=== PATIENT | male | born 1940 | race Caucasian/White ===

== ENCOUNTER → 2018-03-28 09:39 | Outpatient (CLI) | payer MEDICARE, SELFPAY ==
--- NOTE | 2018-03-28 10:06 | DI.CT.S_ITS ---
PROCEDURE: CT HEAD/BRAIN WO CON INDICATIONS: Memory impairment TECHNIQUE: Noncontrast 4.5 mm thick angled axial sections acquired from the foramen magnum to the vertex, with coronal and sagittal reformats. For radiation dose reduction, the following was used: automated exposure control, adjustment of mA and/or kV according to patient size. COMPARISON: None. FINDINGS: Image quality: Excellent. CSF spaces: Basal cisterns are patent. No extra-axial fluid collections. The ventricles are symmetric in size and shape. Brain: No intracranial bleeds or masses. There is cerebral volume loss for age, with resultant ventricular and sulcal prominence. There are periventricular and deep white matter chronic small vessel ischemic changes. There is intracranial internal carotid artery atherosclerosis. Skull and face: Calvarium and visualized facial bones appear intact, without suspicious lesions. Sinuses: Visualized sinuses and mastoids are clear. IMPRESSION: Study within normal limits for age, with age-appropriate brain parenchymal volume loss and chronic small vessel ischemic changes. Dictated by: Arnulfo Abad M.D. on 03/28/2018 at 9:14 Approved by: Arnulfo Abad M.D. on 03/28/2018 at 9:15
== END ==
PROVIDERS: PCP Internal Medicine; Visit Provider Internal Medicine
DX: F04 Amnestic disorder due to known physiological condition (principal)
CPT/HCPCS: 70450

== ENCOUNTER → 2019-04-15 14:46 | Outpatient (CLI) | payer OTHER, SELFPAY ==
--- NOTE | 2019-04-15 | DI.ECHO.S_ITS ---
[place] +---------+ [facility] +---------+ : : [address] : : : : [id number] : : : : Phone: [phone]+ Echocardiogram Report + + :Name: JAYLENE RILEY Study Date: 04/15/2019 Height: 65 in : :[facility] Exam Location: [facility] Weight: 156 lb: : Gender: Male BSA: 1.8 m2 : :: 1940 Age: 79 yrs : :Reason For Study: Aortic valve regurgitation : :Ordering Physician: Ashley : :Nelida Nichols Performed By: Deisi San : + + Interpretation Summary 1) Normal left ventricular thickness, size, and systolic function (EF about 55%). 2) Normal right ventricular size and function. 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 5) Mild to moderate tricuspid regurgitation present. 6) Mild to moderate mitral regurgitation present. 7) Compared to the Echo done 02/28/2018, no significant change. Procedure: A two-dimensional transthoracic echocardiogram with color flow and Doppler was performed. The study quality was technically adequate. Comparison is made with the echocardiogram of 02/28/2018. The heart rate ranged between 48-57 bpm during the study. Left Ventricle: The left ventricle is normal in size. There is normal left ventricular wall thickness. Left ventricular ejection fraction is estimated to be 55 +/- 5%. Left ventricular systolic function is normal. Septal motion is consistent with conduction abnormality. Right Ventricle: The right ventricle is normal in size and function. 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 There is no Doppler evidence for an interatrial shunt. Mitral Valve: The mitral valve leaflets are mildly calcified. There is mild mitral annular calcification. There is mild to moderate mitral regurgitation. Aortic Valve: The aortic valve is trileaflet. The aortic valve opens well. There is moderate aortic regurgitation. Tricuspid Valve: The tricuspid valve leaflets are thin and pliable. There is mild to moderate tricuspid regurgitation. Pulmonic Valve: The pulmonic valve is not well visualized. There is trace pulmonic regurgitation. Great Vessels: The aortic root is normal size. The ascending aorta is mildly enlarged. The pulmonary is not well visualized. The IVC is of normal diameter and collapses less than 50% with a sniff. This suggests a right atrial pressure of 8 mm Hg. Pericardium/ Pleura There is no pericardial effusion. There is no pleural effusion. MMode/2D Measurements & Calculations LVIDd: 5.1 cm LVOT diam: 1.9 cm LVIDs: 3.3 cm Ao root diam: 3.4 cm FS: 35.7 % asc Aorta Diam: 4.1 cm EPSS: 0.41 cm Ao Arch Diam (Prox Trans): 3.1 cm IVSd: 0.99 cm LVPWd: 0.65 cm LV benavidez. diameter/BSA (cm/m^2): 2.9 LV sys. diameter/BSA (cm/m^2): 1.8 LA A2 area: 37.4 cm2 RA long axis: 7.5 cm LA A4 area: 30.6 cm2 RA area: 39.9 cm2 LA length (vol): 6.8 cm RA vol: 181.2 ml LA vol: 142.6 ml RA : 101.8 ml/m2 LA vol index: 80.1 ml/m2 IVC diam: 2.0 cm RVD1 (basal): 4.0 cm RVD2 (mid): 3.6 cm Doppler Measurements & Calculations Ao V2 max: 141.1 cm/sec AI P1/2t: 835.6 msec Ao V2 mean: 95.1 cm/sec AI dec slope: 157.5 cm/sec2 Ao max P.0 mmHg Ao mean P.1 mmHg Ao V2 VTI: 30.6 cm Med Peak E' Felix: 6.9 cm/sec TR max felix: 326.0 cm/sec Lat Peak E' Felix: 8.2 cm/sec TR max P.5 mmHg PA V2 max: 103.3 cm/sec PA V2 mean: 53.3 cm/sec PA mean P.7 mmHg PA Accel Time: 0.08 sec Reading Physician:04:24 PM
== END ==
PROVIDERS: PCP Internal Medicine; Visit Provider Internal Medicine Cardiovascular Disease
DX: I08.3 Combined rheumatic disorders of mitral, aortic and tricuspid valves (principal); I77.810 Thoracic aortic ectasia
CPT/HCPCS: 93306